=== PATIENT | male | born 1965 | race Caucasian/White ===

== ENCOUNTER → 2023-09-10 22:22 | Outpatient (CLI) | payer BC, SELFPAY ==
--- NOTE | 2023-09-10 12:36 | DI.RAD_ITS ---
Exam(s) XR SHOULDER LT COMPLETE 2+V EXAM: XR SHOULDER LT COMPLETE 2+V CLINICAL HISTORY: evaluate pathology, shoulder tendinitis, M77.8, enthesopathies. TECHNIQUE: 2D digital imaging was performed of the left shoulder. Five images were obtained. AP, G rashey, Y-view and axillary views were obtained. COMPARISON: No exams were available for comparison FINDINGS: BONES: No acute fracture is present. No bony destructive lesion is seen. JOINTS: No dislocation present. There are mild degenerative changes seen at the acromioclavicular severiano nt. The glenohumeral joint is well maintained. SOFT TISSUE: The visualized lung fitch are clear. IMPRESSION: Mild degenerative changes at the acromioclavicular joint. DATA REPOSITORY: RADIATION DOSE DELIVERED:
== END ==
PROVIDERS: Visit Provider Nurse Practitioner Family
DX: M19.012 Primary osteoarthritis, left shoulder (principal)
CPT/HCPCS: 73030

== ENCOUNTER → 2023-10-04 03:55 | Outpatient (CLI) | payer BC, SELFPAY ==
--- NOTE | 2023-10-04 14:30 | DI.MRI_ITS ---
Exam(s) MR UPPER JOINT LT WO EXAM: MR UPPER JOINT LT WO CLINICAL HISTORY: L SHOULDER PAIN,lt rotator cuff tear,m75.102 TECHNIQUE: Multiplanar multisequence MRI of the shoulder was performed. COMPARISON: CR XR SHOULDER LT COMPLETE 2+V from 09/10/2023 FINDINGS: MARROW:There is no evidence of fracture, Hill-Sachs deformity, nor ominous osseous lesions. Benign-ap pearing cyst is noted in the mid aspect of the humeral head measuring 7 x 6 x 5 mm. There is no surr ounding bone edema to suggest that this is an aggressive lesion. In GLENOHUMERAL JOINT: There is a small joint effusion which is in continuity with the subacromial subde ltoid space as discussed below. Joint effusion extends into the medial subcoracoid recess. There is some synovial thickening but no loose intra-articular bodies in the joint space nor within the reces ses nor within the biceps tendon sheath which also contains fluid. There are no prominent chondral d efects. No degenerative subarticular cysts in the osseous glenoid. No osteophytes. ROTATOR CUFF MECHANISM: AC JOINT/ACROMIUM: There are mild degenerative changes in the AC joint.. There is no evidence of os acromiale. Supraspinatus: There is a full-thickness tear of the supraspinatus tendon above the greater tuberosit y continuity of fluid between the glenohumeral joint and the subacromial-subdeltoid bursa at this lev el. There is mild retraction of the musculotendinous junction. No muscle atrophy. Infraspinatus: There is articular side partial tearing at its conjoined aspect with the supraspinatus just above the greater tuberosity. The majority of the tendon is intact. No muscle atrophy. Teres Minor: Intact. No evidence of tear nor muscle atrophy. Subscapularis/anterior cuff: Intact. No evidence of tear nor muscle atrophy. There is a tiny subart icular cyst in the lesser tuberosity measuring 2 x 2 mm. BICEPS TENDON: Not displaced from the intertubercular groove. No evidence of tear. Mild fluid in the tendon sheath is continuous with the glenohumeral joint effusion. LABRUM: No evidence of obvious labral tear nor paralabral cyst. QUADRILATERAL SPACE: No evidence of mass in the region of the axillary nerve and dorsal circumflex hu meral vessels. Visualized triceps muscle at this level appears unremarkable. IMPRESSION: 1. There is a full-thickness tear of the supraspinatus-rotator cuff tendon just above the foot pad g reater tuberosity insertion. There is mild retraction musculotendinous junction. There is also mild partial-thickness tearing of the conjoined aspect of the infraspinatus. No evidence of tear of the anterior cuff-subscapularis nor of the teres minor. There is no muscle atrophy 2. No evidence of biceps tendon tear nor obvious labral tears. 3. Minimal degenerative changes. No osteophytes. 4. Small-moderate size joint effusion which is in continuity with the subacromial space through the full-thickness rotator cuff tendon tear. There are no loose intra-articular bodies evident. DATA REPOSITORY:
== END ==
PROVIDERS: Visit Provider Student in an Organized Health Care Education/Training Program
DX: M75.122 Complete rotator cuff tear or rupture of left shoulder, not specified as traumatic (principal); M25.412 Effusion, left shoulder
CPT/HCPCS: 73221

== ENCOUNTER 2023-12-27 08:53 | Day surgery (SDC) | payer BC, SELFPAY ==
[2023-12-27] VITALS (12 sets, daily range): BP systolic 133–168; BP diastolic 67–97; PULSE 67–80; RESP 11–20; TEMP 36.4–36.6; O2SAT 69–99
--- NOTE | 2023-12-27 07:08 | W.PM.DSUDISC ---
Date of service: 12/27/23 Time of Service: 14:00 Discharge Plan Disposition Patient Disposition: Home Condition: Stable Discharge Details Attending Provider: Mohsen Nuñez Primary Care Provider: None,None Home Meds and New Rx's Prescriptions: New naproxen 250 mg tablet 250 - 500 mg PO BID PRN (Reason: Moderate pain) Qty: 40 0RF aspirin 81 mg tablet,delayed release (DR/EC) 81 mg PO DAILY 7 Days Qty: 7 0RF oxycodone 5 mg tablet 5 - 10 mg PO Q4H PRN (Reason: Moderate to severe pain) Qty: 18 0RF Continued atorvastatin [Lipitor] 10 mg tablet 10 mg PO DAILY metformin 500 mg tablet 1,000 mg PO BID glipizide 10 mg tablet 10 mg PO BID fenofibrate 50 mg capsule 50 mg PO DAILY Discharge Instructions Additional Instructions: Surgery: Left shoulder arthroscopy with rotator cuff repair (supraspinatus and subscapularis), biceps tenodesis, extensive debridement, and subacromial decompression. Activity: For 6 weeks, you should keep your arm at your side in a neutral position at all times except for physical therapy. Do not try to lift or raise your arm using your own muscles. You should use the sling whenever you are out of the house. You may have to adjust the abduction pillow or remove it for comfort. At home it is best to remove the sling and rest the arm on a pillow at your side or support the operative side with your other hand. You may allow the arm to dangle at your side. A physical therapy prescription will be sent electronically to begin in about 3 weeks. CONSERVATIVE protocol Prescriptions: Aspirin 81 mg take 1 daily to prevent a blood clot for 7 days, starting tomorrow morning Naproxen 250 mg take 1-2 every 12 hours with a meal as needed for moderate pain Oxycodone 5 mg take 1-2 every 4-6 hours as needed for severe pain You may use [id number] Tylenol (acetaminophen) as needed for mild pain. These pain medications may be taken all at once or in different combinations as needed. Also, recommend Colace (docusate) as a stool softener as surgery and pain medicine cause constipation. You may try [id number] diphenhydramine (Benadryl) 25-50 mg nightly as a sleep aid Dressings: Remove shoulder bandage after 3 days. Leave the sticky Steri-Strips in place until they fall off or remove them after you shower. Cover the incisions with Band-Aids or leave them open to air. You may shower after 5 days. Follow-up: 10-[address] Nuñez You may take off the leg compression stockings this evening at home. You may also leave them on a few days longer if you have a history of leg swelling or edema. Let us know right away if you develop any redness, drainage, fevers, chest pain, or trouble breathing. Do not drink alcohol or drive for at least 24 hours after anesthesia. Please call the office during business hours with any questions or concerns. Stand Alone Forms: Anesthesia Discharge Inst., Olivia.Nerve Block Instructions, Terence Hayward (DSU) Discharge Orders Discharge Orders: Discharge Order (Routine); Ordered 12/27/23 Ordered By: Filiberto Gallardo Discharge Data Discharge Date/Time-TO BE ENTERED AT DEPARTURE: 12/27/23 16:03 DS: Diagnosis Discharge Diagnosis (1) Traumatic tear of left rotator cuff: Status: Acute
--- NOTE | 2023-12-27 07:19 | ROE_ITS ---
Date of service: 12/27/23 Time of Service: 11:00 Operative Note Operative Note DATE OF PROCEDURE: 12/27/23 PRE-OP DIAGNOSIS: Left: 1. Rotator cuff tear 2. LHB tendinopathy 3. Bursitis POST-OP DIAGNOSIS: same PROCEDURE: Left: 1. Rotator cuff repair, CPT# 32646. This involved repair of the subscapularis and supraspinatus using anchors and sutures to reattach the rotator cuff back to the footprint of the lesser and greater tuberosity. 2. Arthroscopic biceps tenodesis, CPT# 79409. This involved arthroscopically suturing and reattaching the long head of the biceps tendon to the proximal humerus at the superior margin of the bicipital groove with a screw at the correct tension. 3. Extensive debridement, CPT# 17266. This involved using arthroscopic hand instruments, power instruments, and radiofrequency instruments to release the long head of the biceps tendon and debride areas of labral tearing, SLAP tearing, rotator interval synovitis, and humeral head chondromalacia working wi thin the glenohumeral joint anteriorly, superiorly and posteriorly. 4. Subacromial decompression with partial acromioplasty, CPT# 06900. This involved using arthroscopic power instruments and a radiofrequency wand to complete a bursectomy and smooth the undersurface of the acromion. The congressional assistant was medically required in order to help assist in techniques above, which require positioning the arm, holding the arthroscope, and manipulating multiple instruments and sutures at the same time. This cannot be done without the help of an experienced congressional assistant. SURGEON: Mohsen Nuñez BEATER ROOM SUPERVISOR: Filiberto Gallardo ANESTHESIA TYPE: Local By Surgeon, General LMA/ETT and Primary Nerve Block Refer to Anesthesia Record ESTIMATED BLOOD LOSS: 5 PATHOLOGY: none sent COMPLICATIONS: None Patient was transported to: PACU Patient's condition: stable Implants: Arthrex: 2.6 mm FiberTak RC x 3 and 4.75mm SwiveLocks x 2 Indications: The patient was diagnosed with the above conditions and appropriately indicated for surgical intervention. Please see complete medical record for details. Findings: Exam under anesthesia: Full range of motion, no instability Glenohumeral joint: Upper lateral subscapularis partial tear. Unstable biceps anchor SLAP tear. Otherwise intact biceps tendon. Mild anterior labral fraying. Mild humeral head chondromalacia. Subacromial space: Moderate bursitis. Large full-thickness moderately retracted, more posterior than medial complete supraspinatus rotator cuff tear with intact separate infraspinatus. Large exposed supraspinatus bony footprint starting from the biceps groove to the infraspinatus tendon. Reasonably good remnant tendon length and quality. Procedure Description: In the operating room, general anesthesia was induced. Bilateral shoulders were examined. The patient was positioned in the beachchair position. All bony prominences were well-padded. Preoperative antibiotics were administered. The shoulder was prepped and draped in the usual sterile fashion. The correct patient, procedure, and side of the procedure were all verified prior to incision. Starting through the posterior portal a standard complete diagnostic arthroscopy was performed of the glenohumeral joint including inspection of the long head of the biceps, anterior and superior labrum, subscapularis tendon, supraspinatus and infraspinatus tendons, and axillary recess. The glenoid and humeral head cartilage as well as the posterior labrum were inspected from an anterior viewing portal. Significant findings and interventions noted above. An anterior superior lateral portal was established and assisted working in the joint through the full-thickness rotator cuff tear. An all-arthroscopic suprapectoral biceps tenodesis was performed through an anterior portal using a Loop N Tack method with a SutureTape FiberLink cinched around and through the tendon. The biceps was tenotomized from the labrum and repair suture withdrawn for later repair combined with the subscapularis. The exposed portion of the lesser tuberosity was prepared, the upper lateral portion of the tendon was secured with the BirdBeak shuttling a suture tape FiberLink, which was singed. The repair site between the superior aspect of the bicipital groove and the subscapularis at the prepared aspect lesser tuberosity was punched, each repair suture loaded individually from the corresponding direction with the biceps from lateral to medial in the subscap for medial lateral through the anchor eyelet. The anchor was deployed with appropriate tension on the biceps tenodesis rested at the superior aspect bicipital groove and secured in the upper lateral portion of the subscapularis. The knotless repair mechanism was then looped around the biceps tendon stump and secured back through the anchor and an additional strength to the 18 oh Deasis. Starting through the posterior portal, the arthroscope was directed into the subacromial space. A lateral 50 yard line lateral portal was created. A combination of power instruments and a radiofrequency ablator were used to debride bursitis anteriorly, posteriorly, and laterally as well as expose and smooth bone spurring on the undersurface of the acromion. The coracoacromial ligament was partially released. The bursectomy was completed viewing laterally and working from posteriorly and the rotator cuff was thoroughly inspected with findings noted above. The large complete supraspinatus rotator cuff tear was thoroughly inspected, the greater tuberosity was lightly abraded to optimize bone and tendon healing. Arm position was best and external rotation and cuff grasper used to confirm good reduction tendon over bone without undue tension from posterior to anterior while also bringing the tendon from medial to lateral. The tendon did not have complete coverage at the most anterior lateral aspect. Given the size of the tear, decision made to proceed with 3 medial row anchors. The posterior and middle were placed percutaneously through the same portal while the ASL portal was used for the anterior. All 3 anchors were 2.6 mm fiber tack anchors loaded with 1.7 mm suture tape. This wedged suture tapes were shuttled through the corresponding level of the supraspinatus medially taking care to confirm appropriate orientation for reduction of the somewhat L shaped tear. A single tail from each of the 3 medial row anchors was then brought out lateral and secured to an anterior lateral row 4.75 mm swivel lock anchor. The remaining 3 tails were brought out lateral and secured to a posterior lateral 4.75 mm SwiveLock anchor. The anterior lateral anchor had an additional knotless repair mechanism with the suture shuttled through the most anterior portion of the rotator cuff and a simple suture configuration securing the anterior cable. The large repair was inspected with good reduction of the tendon without undue tension, there was excellent tissue coverage posteriorly and centrally with less complete coverage most anteriorly, the repair was stable through range of motion and testing. The shoulder was drained of arthroscopic fluid. All portal sites were copiously irrigated. These incisions were closed using 3-0 Monocryl in a buried fashion and then covered with Mastisol, Steri-Strips, Xeroform, dry gauze, and ABDs. The dressings were covered and secured with Medipore tape. The operative extremity was placed into a sling for immobilization. The patient awoke from anesthesia without complication and was transferred to the recovery room in a stable condition.
[2023-12-27] MEDS: Lactated Ringers 1,000 ML 30 ML IV (09:37)
--- NOTE | 2023-12-27 10:03 | ANES.PREOP_ITS ---
General Info Date of Service Date Performed: 12/27/23 Height: 5 ft 6 in Weight: 84.5 kg Body Mass Index (BMI): 30.0 Surgical Procedure: Operation Date: 12/27/23 10:10 Proposed Procedure Side Surgeon p Shoulder Rotator Cuff Arthroscopic w/Extensive Debridement, Biceps Tenotomy/Tenodesis, Subacromial Decompression Left Mohsen Nuñez MD Meds Allergies and Home Medications Allergies Allergy/AdvReac Type Severity Reaction Status Date / Time No Known Allergies Allergy Verified 12/27/23 09:21 Home Medication Medication Instructions Recorded atorvastatin 10 mg tablet (Lipitor) 10 mg PO DAILY 09/10/23 fenofibrate 50 mg capsule 50 mg PO DAILY 12/12/23 glipizide 10 mg tablet 10 mg PO BID 12/12/23 metformin 500 mg tablet 1,000 mg PO BID 12/12/23 aspirin 81 mg tablet,delayed 81 mg PO DAILY Prevent blood clot 12/27/23 release 7 days #7 tabs naproxen 250 mg tablet 250 - 500 mg (1 - 2 x 250 mg) PO 12/27/23 BID PRN Moderate pain #40 tabs oxycodone 5 mg tablet 5 - 10 mg (1 - 2 x 5 mg) PO Q4H 12/27/23 PRN Moderate to severe pain #18 tabs Current Visit Medications: Current Medications Generic Name Dose Route Start Last Admin Trade Name Freq PRN Reason Stop Dose Admin Ringer's Solution 1,000 mls @ 30 mls/hr 12/27/23 06:00 12/27/23 09:37 IV 01/24/24 23:59 30 mls/hr INFUSION YENIFER Administration Cefazolin Sodium/Dextrose 2 gm in 50 mls @ 100 mls/hr 12/27/23 06:00 Ancef Duplex IVPB 01/24/24 23:59 PREOP YENIFER Tranexamic Acid/Sodium Chloride 1,000 mg in 100 mls @ 600 mls/hr 12/27/23 06:00 IVPB 12/27/23 23:59 DIRECTED [facility] IV Miscellaneous Supplies 1 each 12/27/23 06:00 Iv Access IV 01/24/24 23:59 DIRECTED YENIFER Oxycodone HCl 0 mg 12/27/23 07:07 Oxycodone 5 Mg Tab PO 01/26/24 07:06 Q3H PRN PRN Pain Sodium Chloride 0 ml 12/27/23 06:00 Normal Saline Flush 10 Ml Syr IV 01/24/24 23:59 PRN PRN Sodium Chloride 0 ml 12/27/23 06:00 Normal Saline 10 Ml Vial IJ 01/24/24 23:59 DIRECTED PRN Sterile Water 0 ml 12/27/23 06:00 Water,Injection,Sterile 10 Ml Vial IJ 01/24/24 23:59 DIRECTED PRN PFSH Active Problems Active Problems: Problem Status Onset Code Diabetes mellitus E11.9 Traumatic tear of left rotator cuff ~09/09/23 S46.012A Medical History Medical History High cholesterol Tobacco Smoking/Tobacco Use Status: Never Alcohol Alcohol Intake: never Substance Use Substance use: Never Substance use type: does not use Vital Signs and Lab Results Vital Signs Most Recent Vital Signs in EMR: Most Recent Vital Signs Temp Pulse Resp BP Pulse Ox 36.4 C L 67 14 140/81 96 12/27/23 09:31 12/27/23 09:55 12/27/23 09:55 12/27/23 09:55 12/27/23 09:55 Point of Care Results Point of Care Results: Finger Stick Blood Glucose 125 12/27/23 09:31 Lab Results Blood Type / Crossmatch: No Data to Display Complete Blood Count: No Data to Display Complete Metabolic Panel: Hemoglobin A1c 7.5 % (4.5-5.7) H 12/12/23 14:02 Liver Function Panel: No Data to Display Coagulation Panel: No Data to Display Cardiac Panel: No Data to Display Arterial Blood Gas: No Data to Display Venous Blood Gas: No Data to Display Pancreas Panel: No Data to Display Thyroid Panel: No Data to Display Infectious Disease: No Data to Display Blood Cultures: No Data to Display Toxicology Panel: No Data to Display Anesthesia Assessment and Plan Anesthesia History Personal History: No History of Anesthesia Complications Family History: No Family History of Anesthesia Complications Exercise Tolerance Exercise Tolerance: Metabolic Equivalents>4 Pertinent Negatives Pertinent Negatives: No Symptoms of GERD, No Major Cardiovascular Symptoms or Complaints and No Major Pulmonary Symptoms or Complaints Cardiac & Pulmonary Exam Cardiac Exam: Normal S1/S2 Heart Sounds Pulmonary Exam: Clear Bilateral Breath Sounds Implantable Cardiac Device Does patient have a Pacemaker or an ICD?: No Airway Exam Known Difficult Airway: No Mallampati Class: 2 Mouth Opening: Normal (> 3cm) Thyromental Distance: Greater than 3 cm Neck Range of Motion: Full ROM Neck Circumference: Normal Teeth Condition: Normal Dentition ASA Classification ASA Score: ASA 2 Emergency Case?: No NPO Status NPO Status: NPO Clears >2 hours, Solids >8 hours Anesthesia Plan Resuscitation Status: Full Code Anesthesia Technique: General Anesthesia Airway Planned: Endotracheal Tube Pain Management: Surgeon and patient request nerve block Monitors Used: Standard Monitors and SedLine
[2023-12-27] MEDS: ceFAZolin 2 GM/50 ML BAG IVPB (11:09)
[2023-12-27] MEDS: TRANEXAMIC ACID/SOD. CHL. 1,000 MG/100 ML BAG 600 MG IVPB (11:16)
--- NOTE | 2023-12-27 12:03 | W.ANESNERVE ---
Nerve Block Single Injection Procedure Date and Time Date Performed: 12/27/23 Procedure Start: :24 Location Where Procedure Performed Procedure Location: Day Surgery Unit Reason Performed: Postoperative Analgesia Requesting Provider: Mohsen Nuñez Timeout Performed Timeout Performed: Yes Monitoring Used ECG, Blood Pressure, SpO2 and See EMR for corresponding vital signs Sterility Sterility: Hand Hygiene, Surgical Cap, Surgical Mask, Sterile Gloves, Sterile Drape/Sheet and Chlorhexidine Sedation Given During Procedure Sedation Given (Indicate Dose Given): Versed IV Dose:: 2mg Patient Mental Status Patient Mental Status: Sedate with meaningful communication Nerve Block 1st Nerve Block: Laterality: Left Block Type: Interscalene Ultrasound Image Saved?: Yes Needle / Catheter Used: 80mm SonoPlex II Local Anesthetic Bolus (Indicate Dose Given): Lidocaine used for local infiltration of skin, Injected in 3-5ml increments after negative blood aspiration, Bupivacaine 0.5% Dose:: 10mL and Exparel Dose:: 10mL Additives (Indicate Dose Given): None Ultrasound: Sterile probe cover and gel used Nerve Stimulator: Supplement to Ultrasound use and No twitch or parasthesia noted < 0.5 mA Paresthesia: None Procedure Tolerated: No Complications Procedure Outcome: Successful Procedure Comment: Challenging anatomy, block started by Andie Alonso CRNA, but unable to get good visualization. Cortez Padron CRNA completed block. No patient concerns, tolerated well. Performed By: Cortez Padron
[2023-12-27] MEDS: EPINEPHrine 10 MG/10 ML ML (13:23)
--- NOTE | 2023-12-27 15:29 | W.ANESPOSTOP ---
Postoperative Evaluation Date, Time and Location Date Performed: 12/27/23 Time Performed: 15:29 Patient Location: Day Surgery Unit Vital Signs Most Recent Imported Vital Signs: Most Recent Vital Signs Temp Pulse Resp BP Pulse Ox 36.4 C L 78 16 138/78 96 12/27/23 14:50 12/27/23 14:50 12/27/23 14:50 12/27/23 14:50 12/27/23 14:50 Pain Score Most Recent Pain Score: Most Recent Pain Score Pain Level 2 12/27/23 14:50 Assessment Mental Status: Awake (Alert & Oriented to Patient Baseline) Airway and Respiratory Function: Patent airway with normal (patient baseline) respiratory exam Cardiovascular Function: Hemodynamically Stable Hydration Status: Adequately Hydrated Nausea & Vomiting: No Nausea or Vomiting Pain: Pain is tolerable per patient Peripheral Nerve Block: Regional nerve block not resolved at time of post operative discharge
== END 2023-12-27 16:03 | disposition home or self-care (01) ==
LOC: SUR 08:54
PROVIDERS: Visit Provider Student in an Organized Health Care Education/Training Program
PROC: (CPT 29827; principal; 2023-12-27 10:00)
DX: S46.012A Strain of muscle(s) and tendon(s) of the rotator cuff of left shoulder, initial encounter (principal); Y93.H1 Activity, digging, shoveling and raking; X50.0XXA Overexertion from strenuous movement or load, initial encounter
CPT/HCPCS: 29827; 29828; 29823; 29826; 76942; C9290; J0131; J0665; J0690; J1100; J1885; J2001; J2250; J2371; J2405; J2704

== ENCOUNTER 2024-04-08 15:43 | Outpatient (CLI) | payer BC, SELFPAY ==
--- NOTE | 2024-04-08 15:00 | DI.RAD_ITS ---
Exam(s) XR SHOULDER RT COMPLETE 2+V EXAM: XR SHOULDER RT COMPLETE 2+V CLINICAL HISTORY: RIGHT SHOULDER PAIN. TECHNIQUE: 2D digital imaging was performed. Two views. COMPARISON: None FINDINGS: BONES: No acute fracture is present. No bony destructive lesion is seen. Spurring at greater tuberos ity. Degenerative cystic greater tuberosity JOINTS: No dislocation present. Spurring at AC joint. Mild spurring at glenoid. Glenohumeral joint space is maintained. SOFT TISSUE: Normal. IMPRESSION: Mild degenerative changes. DATA REPOSITORY: RADIATION DOSE DELIVERED:
--- NOTE | 2024-04-08 15:30 | DI.RAD_ITS ---
Exam(s) XR CERVICAL SP HANKS TRAUMA 2-3V EXAM: XR CERVICAL SP HANKS TRAUMA 2-3V CLINICAL HISTORY: cervical radiculopathy after fall. TECHNIQUE: 2D digital imaging was performed. Three views. COMPARISON: No exams were available for comparison FINDINGS: BONES: No fracture or destructive lesion. Vertebral bodies are unremarkable. Endplate osteophytes pr ojecting anteriorly from inferior endplates of C3 through C6. C7 not well seen. DISKS: Intervertebral disc spaces are maintained. ALIGNMENT: Cervical spinal alignment is within normal limits. The odontoid and atlantoaxial articulat ions are normal. SOFT TISSUE: Normal. The lung apices are clear. IMPRESSION: Degenerative changes. No acute abnormality. DATA REPOSITORY: RADIATION DOSE DELIVERED:
== END 2024-04-08 15:44 | disposition home or self-care (01) ==
LOC: DIORS 15:43
PROVIDERS: Visit Provider Student in an Organized Health Care Education/Training Program
DX: M25.511 Pain in right shoulder (principal); M54.12 Radiculopathy, cervical region; M19.011 Primary osteoarthritis, right shoulder
CPT/HCPCS: 72040; 73030

== ENCOUNTER 2024-05-21 02:29 | Outpatient (CLI) | payer BC, SELFPAY ==
--- NOTE | 2024-05-21 16:00 | DI.MRI_ITS ---
Exam(s) MR UPPER JOINT RT WO EXAM: MR UPPER JOINT RT WO CLINICAL HISTORY: R SHOULDER PAIN, ? RTC TEAR,m75.101. TECHNIQUE: Multiplanar multisequence MRI was performed. COMPARISON: Plain films 08 April 2024 FINDINGS: BONES: There is no fracture or contusion pattern. Degenerative cysts in the humeral head. JOINTS:The acromioclavicular joint shows degenerative changes with inferior spurring.. The glenohume ral joint shows a small effusion. TENDONS: Supraspinatus: Full-thickness tear with retraction of the supraspinatus tendon to level of the tip of the acromion. Infraspinatus: Thickening and some fluid within tendon. No full-thickness tear. Subscapularis: Unremarkable. Teres Minor: Unremarkable. Biceps and Arabi: Unremarkable. MUSCLES: Mild supraspinatus muscle atrophy. No significant fatty infiltration. GLENOID LABRUM: Unremarkable on this noncontrast examination. SOFT TISSUES: Unremarkable. OTHER: Subacromial and subdeltoid bursae shows small amount of fluid.. IMPRESSION: Full thickest tear with retraction of the supraspinatus tendon. Severe tendinosis question of partia l tear of the infraspinatus. DATA REPOSITORY:
== END 2024-05-21 02:49 ==
LOC: DI 02:29
PROVIDERS: Visit Provider Student in an Organized Health Care Education/Training Program
DX: M75.121 Complete rotator cuff tear or rupture of right shoulder, not specified as traumatic (principal)
CPT/HCPCS: 73221

== ENCOUNTER 2024-06-20 09:05 | Day surgery (SDC) | payer BC, SELFPAY ==
[2024-06-20] VITALS (8 sets, daily range): BP systolic 116–172; BP diastolic 64–96; PULSE 68–83; RESP 15–18; TEMP 36–36.4; O2SAT 95–99; BMI 30.6
--- NOTE | 2024-06-20 07:12 | W.PM.DSUDISC ---
Date of service: 06/20/24 Time of Service: 14:00 Discharge Plan Disposition Patient Disposition: Home Condition: Stable Discharge Details Attending Provider: Mohsen Nuñez Primary Care Provider: Unknown,Unknown Home Meds and New Rx's Prescriptions: New naproxen 250 mg tablet 250 - 500 mg PO BID PRN (Reason: Moderate pain) Qty: 40 0RF oxycodone 5 mg tablet 5 - 10 mg PO Q4H PRN (Reason: Moderate to severe pain) Qty: 18 0RF Continued atorvastatin [Lipitor] 10 mg tablet 10 mg PO DAILY metformin 500 mg tablet 1,000 mg PO BID fenofibrate 50 mg capsule 50 mg PO DAILY glimepiride 4 mg tablet 4 mg PO DAILY glipizide 5 mg tablet extended release 24hr 5 mg PO DAILY losartan 25 mg tablet 25 mg PO DAILY naproxen 250 mg tablet 250 - 500 mg PO BID PRN (Reason: Moderate pain) Qty: 40 0RF Discharge Instructions Additional Instructions: Surgery: Right shoulder arthroscopy with massive rotator cuff repair, biceps tenodesis, extensive debridement, and subacromial decompression. Activity: For 6 weeks, you should keep your arm at your side in a neutral position at all times except for physical therapy. Do not try to lift or raise your arm using your own muscles. You should use the sling whenever you are out of the house. At home it is best to remove the sling and rest the arm on a pillow at your side or support the operative side with your other hand. You may allow the arm to dangle at your side. A physical therapy prescription will be sent electronically to begin in about 3 weeks. CONSERVATIVE protocol. Prescriptions: Naproxen 250 mg take 1-2 every 12 hours with a meal as needed for moderate pain Oxycodone 5 mg take 1-2 every 4-6 hours as needed for severe pain You may use [id number] Tylenol (acetaminophen) as needed for mild pain. These pain medications may be taken all at once or in different combinations as needed. Also, recommend Colace (docusate) as a stool softener as surgery and pain medicine cause constipation. You may try ckqt-szy-hdisgae diphenhydramine (Benadryl) 25-50 mg nightly as a sleep aid Dressings: Remove shoulder bandage after 3 days. Leave the sticky Steri-Strips in place until they fall off or remove them after you shower. Cover the incisions with Band-Aids or leave them open to air. You may shower after 5 days. Follow-up: 10-[address] Nuñez You may take off the leg compression stockings this evening at home. You may also leave them on a few days longer if you have a history of leg swelling or edema. Let us know right away if you develop any redness, drainage, fevers, chest pain, or trouble breathing. Do not drink alcohol or drive for at least 24 hours after anesthesia. Please call the office during business hours with any questions or concerns. Discharge Orders Discharge Orders: Discharge Order (Routine); Ordered 06/20/24 Ordered By: Filiberto Gallardo DS: Diagnosis Discharge Diagnosis (1) Right rotator cuff tear: Status: Acute
--- NOTE | 2024-06-20 07:27 | ROE_ITS ---
Date of service: 06/20/24 Time of Service: 12:00 Operative Note Operative Note DATE OF PROCEDURE: 06/20/24 PRE-OP DIAGNOSIS: Right: 1. Rotator cuff tear 2. LHB tendinopathy 3. Bursitis POST-OP DIAGNOSIS: same PROCEDURE: Right: 1. Rotator cuff repair, CPT# 87007. This involved repair of the supraspinatus and infraspinatus using anchors and sutures to reattach the rotator cuff back to the footprint of the greater tuberosity. 2. Arthroscopic biceps transposition tenodesis, CPT# 57114. This involved arthroscopically suturing and relocating the long head of the biceps tendon to the proximal humerus at the anterior medial aspect of the greater tuberosity for additional tissue coverage and downward depression of the humeral head. 3. Extensive debridement, CPT# 73516. This involved using arthroscopic hand instruments, power instruments, and radiofrequency instruments to release the long head of the biceps tendon and debride areas of labral tearing, synovitis, partial subscapularis tearing, and chondromalacia about the glenohumeral joint working anteriorly, superiorly and posteriorly. 4. Subacromial decompression with partial acromioplasty, CPT# 85942. This involved using arthroscopic power instruments and a radiofrequency wand to complete a bursectomy and smooth the undersurface of the acromion. The payroll administrative assistant was medically required in order to help assist in techniques ab ove, which require positioning the arm, holding the arthroscope, and manipulating multiple instruments and sutures at the same time. This cannot be done without the help of an experienced payroll administrative assistant. SURGEON: Mohsen Nuñez ORTHOTIC AND PROSTHETIC TECHNICIAN: Filiberto Gallardo ANESTHESIA TYPE: Local By Surgeon, General LMA/ETT and Primary Nerve Block Refer to Anesthesia Record ESTIMATED BLOOD LOSS: 5 PATHOLOGY: none sent COMPLICATIONS: None Patient was transported to: PACU Patient's condition: stable Implants: Arthrex: 4.75mm SwiveLocks x 2, 5.5 mm SL x2 Indications: Please see complete medical record for details. Findings: Exam under anesthesia: Full range of motion, no instability Glenohumeral joint: Moderate generalized chondromalacia, moderate anterior posterior labral fraying, remarkably intact superior labrum biceps tendon intra- articular segment. Partial grade chronic?appearance subscapularis upper margin tearing. Obvious superior rotator cuff void. Subacromial space: Moderate bursitis, mildly diminished subacromial space, chronic balled greater tuberosity from the bicipital groove through the infraspinatus with thin delaminated infraspinatus supraspinatus retracted tendon tissue. Very soft bone quality. Procedure Description: In the operating room, general anesthesia was induced. Bilateral shoulders were examined. The patient was positioned in the beachchair position. All bony prominences were well-padded. Preoperative antibiotics were administered. The shoulder was prepped and draped in the usual sterile fashion. The correct patient, procedure, and side of the procedure were all verified prior to incision. Starting through the posterior portal a standard complete diagnostic arthroscopy was performed of the glenohumeral joint including inspection of the long head of the biceps, anterior and superior labrum, subscapularis tendon, supraspinatus and infraspinatus tendons, and axillary recess. The glenoid and humeral head cartilage as well as the posterior labrum were inspected from an anterior viewing portal. Significant findings and interventions noted above. Of note, there was significant global chondromalacia and remarkable chronic?appearing tendon degeneration and poor?. Bone and tendon quality. The biceps however was remarkably intact. Careful manipulation arm positioning mobilization and debridement were used to release the scarred posterior infraspinatus as well as mobilize the supraspinatus from posterior to anterior medial to lateral and free up rotator interval and anterior scarring as well. After these were all done, the combined tendon was able to cover the majority of the greater tuberosity surprisingly well without undue tension. The subscapularis tissue did not appear overly amenable to repair and the majority was still attached decision was made to leave debridement of the upper torn portion. The biceps was then mobilized from the groove over the bald anterior portion of the greater tuberosity as a transposition type tenodesis to add downward depression to the humerus and additional tissue coverage here where he was most deficient. The arthroscope was redirected from the glenohumeral and subacromial spaces working through the large rotator cuff avoid and thorough meticulous preparation for the planned repairs with allograft reconstruction as backup. Bursal tissue was thoroughly debrided about the margins and the underside of the acromion was exposed and then debrided a few millimeters to open the mildly narrow subacromial space. A modified speed bridge construct was done with the anterior medial row anchor 4.75 mm SwiveLock loaded with a suture tape FiberLink that had been shuttled around the biceps tendon to mobilize it posteriorly. The knotless repair suture from this anchor was then placed through the tendon over the greater tuberosity and secured to the anchor for additional fixation at this point. The undersized punch was used throughout owing to the remarkably soft and poor bone quality. The various layers of the rotator cuff were carefully repaired together and incorporated at the appropriate levels. A posterior medial row anchor was placed second 4.75 mm SwiveLock preloaded with fiber tapes as well as a suture tape FiberLink containing the upper portion of the far posterior good rotator cuff tissue probably some of the infraspinatus. The fiber tapes from each medial row anchor were then individually shuttled with the scorpion through the rotator cuff at various levels for planned repair. A single tail was brought out laterally and the clear [place] cannula insert used to confirm somewhat surprisingly good reduction and tissue coverage over the greater tuberosity to lateral row positions. The scorpion suture passer was used to place an additional 2 suture tape FiberLink's in the central to anterior supraspinatus. All 4 suture tails were then brought to an anterior lateral row 5.5 mm SwiveLock anchor with good reduction of the majority the repair across the greater tuberosity. The remaining tapes were brought out laterally and an additional suture tape FiberLink placed in the posterior portion of the infraspinatus repair and the 3 suture tails secured to a posterior lateral row anchor. The rotator cuff throughout its course for anteriorly to posteriorly was nicely reduced and secured across the greater tuberosity with majority tissue coverage. The repair was quite stable through range of motion and testing. All suture anchors had been vigorously tested especially the medial rows which were the soft this bone positions and there was no motion loosening or instability demonstrated. Care was taken to avoid undue tension as although with the repair was surprisingly complete the tendon realistically was nowhere near normal strength or thickness especially considering the known MRI supersize atrophy. The shoulder was drained of arthroscopic fluid. All portal sites were copiously irrigated. These incisions were closed using 3-0 Monocryl in a buried fashion and then covered with Mastisol, Steri-Strips, Xeroform, dry gauze, and ABDs. The dressings were covered and secured with Medipore tape. The operative extremity was placed into a sling for immobilization. The patient awoke from anesthesia without complication and was transferred to the recovery room in a stable condition.
--- NOTE | 2024-06-20 08:50 | W.ANESPRE ---
General Info Date of Service Date Performed: 06/20/24 Height: 5 ft 6 in Weight: 86 kg Body Mass Index (BMI): 30.6 Surgical Procedure: Operation Date: 06/20/24 10:40 Proposed Procedure Side Surgeon p Shoulder Rotator Cuff Arthroscopic w/Extensive Debridement, Biceps Tenodesis, Subacromial Decompression, Possible Superior Capsular Reconstruction Right Mohsen Nuñez MD Meds Allergies and Home Medications Allergies Allergy/AdvReac Type Severity Reaction Status Date / Time No Known Allergies Allergy Verified 06/20/24 09:12 Home Medication ?Medication ?Instructions ?Recorded atorvastatin 10 mg tablet (Lipitor) 10 mg PO DAILY 09/10/23 fenofibrate 50 mg capsule 50 mg PO DAILY 12/12/23 metformin 500 mg tablet 1,000 mg PO BID 12/12/23 naproxen 250 mg tablet 250 - 500 mg (1 - 2 x 250 mg) PO 12/27/23 BID PRN Moderate pain #40 tabs glimepiride 4 mg tablet 4 mg PO DAILY 04/29/24 glipizide 5 mg tablet, extended 5 mg PO DAILY 04/29/24 release 24 hr losartan 25 mg tablet 25 mg PO DAILY 04/29/24 naproxen 250 mg tablet 250 - 500 mg (1 - 2 x 250 mg) PO 06/20/24 BID PRN Moderate pain #40 tabs oxycodone 5 mg tablet 5 - 10 mg (1 - 2 x 5 mg) PO Q4H 06/20/24 PRN Moderate to severe pain #18 tabs Current Visit Medications: Current Medications Generic Name Dose Route Start Last Admin Trade Name Freq PRN Reason Stop Dose Admin Ringer's Solution 1,000 mls @ 30 mls/hr 06/20/24 06:00 IV 07/19/24 23:59 INFUSION YENIFER Cefazolin Sodium/Dextrose 2 gm in 50 mls @ 100 mls/hr 06/20/24 06:00 Ancef Duplex IVPB 07/19/24 23:59 PREOP YENIFER Tranexamic Acid/Sodium Chloride 1,000 mg in 100 mls @ 600 mls/hr 06/20/24 06:00 IVPB 07/19/24 23:59 PREOP YENIFER IV Miscellaneous Supplies 1 each 06/20/24 06:00 Iv Access IV 07/19/24 23:59 DIRECTED YENIFER Oxycodone HCl 0 mg 06/20/24 07:12 Oxycodone 5 Mg Tab PO 07/20/24 07:11 Q3H PRN PRN Pain Sodium Chloride 0 ml 06/20/24 06:00 Normal Saline Flush 10 Ml Syr IV 07/19/24 23:59 PRN PRN Sodium Chloride 0 ml 06/20/24 06:00 Normal Saline 10 Ml Vial IJ 07/19/24 23:59 DIRECTED PRN Sterile Water 0 ml 06/20/24 06:00 Water,Injection,Sterile 10 Ml Vial IJ 07/19/24 23:59 DIRECTED PRN PFSH Active Problems Active Problems: Problem Status Onset Code Right rotator cuff tear Acute 03/30/24 M75.101 Leg cramps Acute R25.2 Balance disorder Acute R26.89 Numbness and tingling in both hands Acute R20.0, R20.2 Cervical spine arthritis with nerve pain Acute M47.812, M79.2 Diabetes mellitus Chronic E11.9 Traumatic tear of left rotator cuff Acute ~09/09/23 S46.012A Medical History Medical History (Updated 05/14/24 @ 13:58 by LUCRECIA Spencer) Hypertension High cholesterol Surgical History Surgical History (Updated 06/19/24 @ 08:59 by Beverley Rodriguez) S/P rotator cuff repair Left, per pt. Tobacco Smoking/Tobacco Use Status: Never Alcohol Alcohol Intake: current Alcohol intake frequency: holidays/special occasions only Substance Use Substance use: Never Substance use type: does not use Vital Signs and Lab Results Vital Signs Most Recent Vital Signs in EMR: Temp Pulse Resp BP Pulse Ox 36.0 C L 70 18 172/77 H 99 06/20/24 09:20 06/20/24 09:20 06/20/24 09:20 06/20/24 09:20 06/20/24 09:20 Lab Results Blood Type / Crossmatch: No Data to Display Complete Blood Count: No Data to Display Complete Metabolic Panel: No Data to Display Liver Function Panel: No Data to Display Coagulation Panel: No Data to Display Cardiac Panel: No Data to Display Arterial Blood Gas: No Data to Display Venous Blood Gas: No Data to Display Pancreas Panel: No Data to Display Thyroid Panel: No Data to Display Infectious Disease: No Data to Display Blood Cultures: No Data to Display Toxicology Panel: No Data to Display Anesthesia Assessment and Plan Anesthesia History Personal History: No History of Anesthesia Complications Family History: No Family History of Anesthesia Complications Exercise Tolerance Exercise Tolerance: Metabolic Equivalents>4 Cardiac & Pulmonary Exam Cardiac Exam: Normal S1/S2 Heart Sounds Pulmonary Exam: Clear Bilateral Breath Sounds Implantable Cardiac Device Does patient have a Pacemaker or an ICD?: No Airway Exam Known Difficult Airway: No Mallampati Class: 2 Mouth Opening: Normal (> 3cm) Thyromental Distance: Greater than 3 cm Neck Range of Motion: Full ROM Neck Circumference: Normal Teeth Condition: Normal Dentition ASA Classification ASA Score: ASA 3 Emergency Case?: No NPO Status NPO Status: NPO Clears >2 hours, Solids >8 hours Anesthesia Plan Resuscitation Status: Full Code Anesthesia Technique: General Anesthesia Airway Planned: Endotracheal Tube Pain Management: Surgeon and patient request nerve block Monitors Used: Standard Monitors Preoperative Comments:: 58 yo male for shoulder scope. Sig PMHx: HTN (losartan), DM (glipizide, glimepiride, metformin. Last A1c 7.5), neck pain with hand/arm numbness (followed by neuro),never smoker, occ EtOH. Previous Anes: - shoulder, glide 3 grade 1, easy mask. ISB: 2 mg midaz for sedation. 10 mL exparal/ 10 mL 0.5%, 2/10 on post op. Discussed GA with ISB. Discussed risks of block. Discussed nerve injury and making his hand/finger numbness worse.
[2024-06-20] MEDS: Lactated Ringers 1,000 ML 30 ML IV (09:33)
[2024-06-20] MEDS: ceFAZolin 2 GM/50 ML BAG IVPB (11:42)
[2024-06-20] MEDS: TRANEXAMIC ACID/SOD. CHL. 1,000 MG/100 ML BAG 600 MG IVPB (11:52)
--- NOTE | 2024-06-20 11:57 | W.ANESNERVE ---
Nerve Block Single Injection Procedure Date and Time Date Performed: 06/20/24 Procedure Start: 10:59 Location Where Procedure Performed Procedure Location: Day Surgery Unit Reason Performed: Postoperative Analgesia Requesting Provider: Mohsen Nuñez Timeout Performed Timeout Performed: Yes Monitoring Used ECG, Blood Pressure, SpO2 and See EMR for corresponding vital signs Sterility Sterility: Hand Hygiene, Surgical Cap, Surgical Mask, Sterile Gloves, Sterile Drape/Sheet, Eye Protection and Chlorhexidine Sedation Given During Procedure Sedation Given (Indicate Dose Given): Versed IV Dose:: 2mg Patient Mental Status Patient Mental Status: Sedate with meaningful communication Nerve Block 1st Nerve Block: Laterality: Right Block Type: Interscalene Ultrasound Image Saved?: Yes Needle / Catheter Used: 100mm SonoPlex II Local Anesthetic Bolus (Indicate Dose Given): Lidocaine used for local infiltration of skin, Injected in 3-5ml increments after negative blood aspiration, Bupivacaine 0.5% Dose:: 10ml and Exparel Dose:: 10ml Additives (Indicate Dose Given): None Ultrasound: Sterile probe cover and gel used Nerve Stimulator: Supplement to Ultrasound use and No twitch or parasthesia noted < 0.5 mA Paresthesia: None Procedure Tolerated: No Complications and Patient tolerated well Procedure Outcome: Successful Procedure Comment: technically challenging block, difficult anatomy. Performed By: Francisco Valentine
[2024-06-20] MEDS: Bupivacaine 0.25% Pres-Free W/EPI 30 ML VIAL (12:08)
[2024-06-20] MEDS: EPINEPHrine 10 MG/10 ML ML (12:20)
--- NOTE | 2024-06-20 14:18 | W.ANESPOSTOP ---
Postoperative Evaluation Date, Time and Location Date Performed: 06/20/24 Time Performed: 14:18 Patient Location: Day Surgery Unit Vital Signs Most Recent Imported Vital Signs: Most Recent Vital Signs Temp Pulse Resp BP Pulse Ox 36.4 C L 68 18 133/77 96 06/20/24 10:59 06/20/24 10:59 06/20/24 10:59 06/20/24 10:59 06/20/24 10:59 Pain Score Most Recent Pain Score: Most Recent Pain Score Pain Level 0 06/20/24 10:59 Assessment Mental Status: Awake (Alert & Oriented to Patient Baseline) Airway and Respiratory Function: Patent airway with normal (patient baseline) respiratory exam Cardiovascular Function: Hemodynamically Stable Hydration Status: Adequately Hydrated Nausea & Vomiting: No Nausea or Vomiting Pain: Pain is tolerable per patient Peripheral Nerve Block: Regional nerve block not resolved at time of post operative discharge
[2024-06-20] MEDS: oxyCODONE 5 MG TAB PO (14:52)
== END 2024-06-20 16:15 | disposition home or self-care (01) ==
LOC: SUR 09:05
PROVIDERS: Visit Provider Student in an Organized Health Care Education/Training Program
PROC: (CPT 29827; principal; 2024-06-20 10:30)
DX: M75.121 Complete rotator cuff tear or rupture of right shoulder, not specified as traumatic (principal); I10 Essential (primary) hypertension; E11.9 Type 2 diabetes mellitus without complications; Z79.84 Long term (current) use of oral hypoglycemic drugs; M75.21 Bicipital tendinitis, right shoulder; M75.51 Bursitis of right shoulder; G89.18 Other acute postprocedural pain
CPT/HCPCS: 29827; 29828; 29823; 29826; 64415; 76942; C9290; J0665; J0690; J2250; J2371; J2704

== ENCOUNTER 2024-08-06 13:59 | Outpatient (CLI) | payer BC, SELFPAY ==
--- NOTE | 2024-08-06 14:35 | DI.MRI_ITS ---
Exam(s) MR CERVICAL SPINE WO EXAM: MR CERVICAL SPINE WO CLINICAL HISTORY: M47.812, M79.2 trauma now with bilateral arm paraesthesias TECHNIQUE: Multiplanar multisequence MRI of the cervical spine was performed without intravenous con trast. COMPARISON: CR XR CERVICAL SP HANKS TRAUMA 2-3V from 04/08/2024 FINDINGS: BONES: Vertebral body heights are maintained. Alignment is normal. Bone marrow signal intensity is wi thin normal limits. CERVICAL CORD: Craniovertebral junction is unremarkable. The cervical cord shows abnormal high signal at the C5-6 level. The remainder of the cord signal appears normal. SOFT TISSUES: Unremarkable. C2-3: No disc herniation or bulge is identified. Mild leftneural foraminal narrowing secondary to fa cet hypertrophy. No significant central canal stenosis. C3-4: No disc herniation or bulge is identified. Endplate osteophytes are eccentric toward the left. Facet hypertrophy combines with osteophytes to produce severe left neural foraminal narrowing. No s ignificant central canal stenosis. C4-5: Endplate osteophytes and mild disc bulging. [id number] bilateral neural foraminal narrow ing. No significant central canal stenosis. C5-6: Prominent endplate osteophytes projecting circumferentially. There is superimposed disc bulgin g. There is severe narrowing of the AP dimension of the canal, 4 millimeters.. The cervical cord s hows edema and decreased AP dimension. There is severe bilateral neural foraminal narrowing. C6-7: Broad-based disc osteophytes. Mild bilateral neural foraminal narrowing. No significant centra l canal stenosis. C7-T1: No disc herniation or bulge is identified. No evidence of neural foraminal narrowing. No signi ficant central canal stenosis. IMPRESSION: Prominent endplate osteophytes, disc bulging as well as facet degenerative changes combine to produce severe central canal stenosis. There is high signal in the cord at this level consistent with contu sophie. Severe bilateral neural foraminal narrowing is present at this level as well. DATA REPOSITORY:
== END 2024-08-06 14:19 ==
LOC: DI 14:02
PROVIDERS: Visit Provider Psychiatry & Neurology Neurology
DX: M47.812 Spondylosis without myelopathy or radiculopathy, cervical region (principal)
CPT/HCPCS: 72141

== ENCOUNTER 2024-09-25 09:09 | Outpatient (CLI) | payer BC, SELFPAY ==
--- NOTE | 2024-09-25 | DI.RAD_ITS ---
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 TECHNIQUE: 2D digital imaging was performed. Three views. COMPARISON: CR XR CERVICAL SP HANKS TRAUMA 2-3V from 04/08/2024 MR MR CERVICAL SPINE WO from 08/06/2024 FINDINGS: BONES: No fracture or destructive lesion. Vertebral bodies are unremarkable. Status post anterior fu sophie from C5 through C7 which has occurred since the prior examinations. No facet degenerative paz es are present. DISKS: Intervertebral disc spaces are maintained. ALIGNMENT: Cervical spinal alignment is within normal limits. The odontoid and atlantoaxial articulat ions are normal. SOFT TISSUE: Normal. The lung apices are clear. IMPRESSION: Status post anterior fusion from C5 through C7. DATA REPOSITORY: RADIATION DOSE DELIVERED:
== END 2024-09-25 09:29 ==
LOC: DI 09:09
PROVIDERS: Visit Provider Neurological Surgery
DX: M48.02 Spinal stenosis, cervical region (principal); G99.2 Myelopathy in diseases classified elsewhere
CPT/HCPCS: 72040